=== PATIENT | male | born 1965 | race Caucasian/White ===

== ENCOUNTER 2017-11-20 19:31 | Emergency (ER) | payer MEDICARE ==
[~2017-11-20] VITALS: Ht 182.9 cm; Wt 76.2 kg
[2017-11-20] MEDS ORDERED: OMEPRAZOLE40 MG PO (19:45)
[2017-11-20] MEDS ORDERED: LOSARTAN POTASS50 MG PO (19:45)
[2017-11-20] MEDS ORDERED: SODIUM CHLORIDE 0.9% 1000ML 1,000 ML IV ONE (19:45)
[2017-11-20] MEDS ORDERED: CALAN SR240 MG PO (19:45)
[2017-11-20] MEDS ORDERED: VENTOLIN HFA18 GM PO (19:45)
[2017-11-20 19:58] LABS: BASOPHILS # (AUTO) 0.1 (0.0-0.1); BASOPHILS % 0.6 % (0.0-1.0); EOSINOPHILS # (AUTO) 0.2 (0.0-0.4); EOSINOPHILS % 2.5 % (0.0-6.0); HEMATOCRIT 39.2 % (38.2-49.6); HEMOGLOBIN 12.9 g/dL (14.0-18.0); LYMPHOCYTES # (AUTO) 2.3 (1.0-3.2); LYMPHOCYTES % 29.4 % (18.0-39.1); MEAN CORPUSCULAR HEMOGLOBIN 31.2 pg (28-32); MEAN CORPUSCULAR HGB CONC 32.9 g/dL (31-35); MEAN CORPUSCULAR VOLUME 94.7 fL (81-99); MONOCYTES # (AUTO) 0.7 (0.2-0.8); NEUTROPHILS # (AUTO) 4.6 (2.1-6.9); NEUTROPHILS % 58.2 % (38.7-80.0); PLATELET COUNT 255 x10e3/uL (140-360); RED BLOOD COUNT 4.14 x10e6/uL (4.3-5.7); RED CELL DISTRIBUTION WIDTH 13.2 % (11.7-14.4)
[2017-11-20 20:18] LABS: ACETAMINOPHEN < 3 ug/mL (10-30); ALANINE AMINOTRANSFERASE 10 IU/L (0-55); ALBUMIN 4.1 g/dL (3.5-5.0); ALBUMIN/GLOBULIN RATIO 1.1 (0.8-2.0); ALKALINE PHOSPHATASE 107 IU/L (40-150); AMYLASE 31 U/L (25-125); ANION GAP 16.6 mmol/L (8-16); BLOOD UREA NITROGEN 29 mg/dL (7-26); BUN/CREATININE RATIO 19 (6-25); CALCIUM 9.3 mg/dL (8.4-10.2); CARBON DIOXIDE 26 mmol/L (22-29); CHLORIDE 101 mmol/L (98-107); CREATINE KINASE 109 IU/L (30-200); CREATININE, SERUM 1.49 mg/dL (0.72-1.25); EST GLOMERULAR FILTRATION RATE 50 ML/MIN (60-); GLUCOSE 99 mg/dL (74-118); LIPASE 10 U/L (8-78); POTASSIUM 4.6 mmol/L (3.5-5.1); SALICYLATE < 5.0 mg/dL (0-30); SODIUM 139 mmol/L (136-145)
--- NOTE | 2017-11-20 20:57 | Diagnostic Imaging Report ---
A single frontal view of the chest. HISTORY: Confusion, low blood pressure, altered mental status COMPARISON: None available. DISCUSSION: Portable technique, limits sensitivity of the exam. Overlying monitoring leads. Tubes/Lines: None Lungs and pleura: The lungs appear well inflated. No evidence of a consolidative pneumonia or pulmonary alveolar edema. Mild right pleural thickening versus trace pleural effusion. Heart and mediastinum: The cardiomediastinal silhouette appears unremarkable. Bones: Healed fracture deformity of the right seventh rib. IMPRESSION: 1. Right pleural thickening versus trace pleural effusion. 2. Otherwise, unremarkable. Signed by: Dr. Umesh Marley D.O., M.M.M. on 11/20/2017 8:53 PM
--- NOTE | 2017-11-20 21:04 | Diagnostic Imaging Report ---
Exam: Head CT without contrast History: Confusion Comparison studies: None Technique: Axial images were obtained from the skull base to the vertex. Coronal and sagittal images reconstructed from the axial data. Dose modulation, iterative reconstruction, and/or weight based adjustment of the mA/kV was utilized to reduce the radiation dose to as low as reasonably achievable. Radiation dose: Total DLP: 1036 mGy*cm. Estimated effective dose: DLP x 0.015 Intravenous contrast: None Findings: Scalp: No abnormalities. Bones: No fractures, blastic or lytic lesions. Brain sulci: Mildly prominent. Ventricles: Normal in size and configuration. No hydrocephalus. Anatomical variant cavum septum pellucidum and cavum vergae. Extra-axial spaces: No masses, no fluid collection. Parenchyma: No abnormal densities. No masses, hemorrhage, acute or chronic vascular insults. Sellar/suprasellar region: No abnormalities. Craniocervical junction: Patent foramen magnum. No Chiari one malformation. Included paranasal sinuses: Ethmoid air cells are partially opacified bilaterally. IMPRESSION: 1. No acute intracranial abnormalities. 2. Mild generalized volume loss. Signed by: Dr. Ganesh Capellan M.D. on 11/20/2017 9:01 PM
[2017-11-20 21:30] LABS: CLARITY,URINE CLOUDY (CLEAR); COLOR,URINE YELLOW (YELLOW); LEUKOCYTE ESTERASE ,URINE NEGATIVE (NEGATIVE); NITRITE,URINE NEGATIVE (NEGATIVE); PROTEIN,URINE DIPSTICK TRACE (NEGATIVE)
[2017-11-20 21:31] LABS: BILIRUBIN,URINE 1+ (NEGATIVE); KETONES,URINE TRACE (NEGATIVE); URINE UROBILINOGEN 0.2 mg/dL (0.2 - 1)
[2017-11-20 21:34] LABS: AMPHETAMINES SCREEN,URINE NEGATIVE (NEGATIVE); BENZODIAZEPINES SCREEN,URINE POSITIVE (NEGATIVE); PHENCYCLIDINE SCREEN,URINE NEGATIVE (NEGATIVE)
[2017-11-20 21:53] LABS: BACTERIA,URINE FEW /HPF; EPITHELIAL CELLS,URINE RARE /LPF; RBC,URINE 0-5 /HPF (0-5); WBC,URINE (MAN) 0-5 /HPF (0-5)
== END 2017-11-20 21:47 | disposition left against medical advice (07) ==
LOC: ER 19:31
DX: F11.10 Opioid abuse, uncomplicated (principal); F19.10 Other psychoactive substance abuse, uncomplicated; R53.1 Weakness; R26.2 Difficulty in walking, not elsewhere classified; I10 Essential (primary) hypertension; J44.9 Chronic obstructive pulmonary disease, unspecified; B19.20 Unspecified viral hepatitis C without hepatic coma; E78.00 Pure hypercholesterolemia, unspecified; F17.210 Nicotine dependence, cigarettes, uncomplicated
CPT/HCPCS: 36415; 70450; 71045; 80053; 80307; 80320; 80329 ×2; 81001; 82140; 82150; 82550; 82553; 83605; 83690; 84484; 85025; 93005; 99283; J7030

== ENCOUNTER → 2018-03-19 | Outpatient (CLI) | payer MEDICARE ==
[~2018-03-19] MED LIST: CALAN SR240 MG PO; LOSARTAN POTASS50 MG PO; OMEPRAZOLE40 MG PO; VENTOLIN HFA18 GM PO
== END ==
LOC: RAD 12:43
PROVIDERS: ATTEND Family Medicine
DX: R07.9 Chest pain, unspecified (principal)

== ENCOUNTER → 2018-06-01 | Outpatient (CLI) | payer MEDICARE | LOC: CARD 08:32 | PROVIDERS: ATTEND Family Medicine | DX: R07.9 Chest pain, unspecified (principal) | CPT/HCPCS: 93017 ==